=== PATIENT | male | born 1955 | race Caucasian/White ===

== ENCOUNTER → 2020-09-02 | Outpatient (CLI) | payer BC | LOC: WCC 13:34 | PROVIDERS: ATTEND Plastic Surgery | DX: I70.244 Atherosclerosis of native arteries of left leg with ulceration of heel and midfoot (principal); I70.262 Atherosclerosis of native arteries of extremities with gangrene, left leg; U07.1 COVID-19; L97.421 Non-pressure chronic ulcer of left heel and midfoot limited to breakdown of skin; L97.528 Non-pressure chronic ulcer of other part of left foot with other specified severity; I82.4Y1 Acute embolism and thrombosis of unspecified deep veins of right proximal lower extremity; I73.89 Other specified peripheral vascular diseases; I50.9 Heart failure, unspecified; R09.89 Other specified symptoms and signs involving the circulatory and respiratory systems; I48.91 Unspecified atrial fibrillation; I10 Essential (primary) hypertension; M47.817 Spondylosis without myelopathy or radiculopathy, lumbosacral region; M51.26 Other intervertebral disc displacement, lumbar region ==

== ENCOUNTER → 2020-09-04 | Outpatient (CLI) | payer BC | LOC: WCC 08:13 | PROVIDERS: ATTEND Podiatrist | DX: I70.262 Atherosclerosis of native arteries of extremities with gangrene, left leg (principal); L97.528 Non-pressure chronic ulcer of other part of left foot with other specified severity; L97.421 Non-pressure chronic ulcer of left heel and midfoot limited to breakdown of skin; I70.244 Atherosclerosis of native arteries of left leg with ulceration of heel and midfoot; I82.4Y1 Acute embolism and thrombosis of unspecified deep veins of right proximal lower extremity; R06.89 Other abnormalities of breathing; I73.89 Other specified peripheral vascular diseases; M51.26 Other intervertebral disc displacement, lumbar region; I50.9 Heart failure, unspecified; M47.817 Spondylosis without myelopathy or radiculopathy, lumbosacral region; I48.91 Unspecified atrial fibrillation; I10 Essential (primary) hypertension ==

== ENCOUNTER → 2020-09-09 | Outpatient (CLI) | payer BC | LOC: WCC 13:44 | PROVIDERS: ATTEND Podiatrist | DX: I70.244 Atherosclerosis of native arteries of left leg with ulceration of heel and midfoot (principal); I70.262 Atherosclerosis of native arteries of extremities with gangrene, left leg; U07.1 COVID-19; L60.1 Onycholysis; L97.528 Non-pressure chronic ulcer of other part of left foot with other specified severity; L97.421 Non-pressure chronic ulcer of left heel and midfoot limited to breakdown of skin; I82.4Y1 Acute embolism and thrombosis of unspecified deep veins of right proximal lower extremity; I73.89 Other specified peripheral vascular diseases; R09.89 Other specified symptoms and signs involving the circulatory and respiratory systems; M51.26 Other intervertebral disc displacement, lumbar region; I10 Essential (primary) hypertension; I48.91 Unspecified atrial fibrillation; I50.9 Heart failure, unspecified; M47.817 Spondylosis without myelopathy or radiculopathy, lumbosacral region ==

== ENCOUNTER → 2020-09-16 | Outpatient (CLI) | payer BC ==
[~2020-09-16] MED LIST: COLLAGENASE OINTMENT 30 GM TUBE ONE; LIDOCAINE/PRILOCAINE 2.5-2.5% KIT ONE; MUPIROCIN 2% OINT 22 GM TUBE ONE
== END ==
LOC: WCC 13:41
PROVIDERS: ATTEND Podiatrist
DX: I70.244 Atherosclerosis of native arteries of left leg with ulceration of heel and midfoot (principal); I70.262 Atherosclerosis of native arteries of extremities with gangrene, left leg; U07.1 COVID-19; L60.1 Onycholysis; L97.421 Non-pressure chronic ulcer of left heel and midfoot limited to breakdown of skin; L97.528 Non-pressure chronic ulcer of other part of left foot with other specified severity; I82.4Y1 Acute embolism and thrombosis of unspecified deep veins of right proximal lower extremity; I73.89 Other specified peripheral vascular diseases; R09.89 Other specified symptoms and signs involving the circulatory and respiratory systems; I10 Essential (primary) hypertension; I48.91 Unspecified atrial fibrillation; I50.9 Heart failure, unspecified; M47.817 Spondylosis without myelopathy or radiculopathy, lumbosacral region; M51.26 Other intervertebral disc displacement, lumbar region

== ENCOUNTER → 2020-09-23 | Outpatient (CLI) | payer BC | LOC: WCC 13:41 | PROVIDERS: ATTEND Podiatrist | DX: I70.244 Atherosclerosis of native arteries of left leg with ulceration of heel and midfoot (principal); I70.262 Atherosclerosis of native arteries of extremities with gangrene, left leg; U07.1 COVID-19; L97.421 Non-pressure chronic ulcer of left heel and midfoot limited to breakdown of skin; L97.528 Non-pressure chronic ulcer of other part of left foot with other specified severity; L60.1 Onycholysis; I82.4Y1 Acute embolism and thrombosis of unspecified deep veins of right proximal lower extremity; I73.89 Other specified peripheral vascular diseases; R09.89 Other specified symptoms and signs involving the circulatory and respiratory systems; M51.26 Other intervertebral disc displacement, lumbar region; I10 Essential (primary) hypertension; I48.91 Unspecified atrial fibrillation; I50.9 Heart failure, unspecified; M47.817 Spondylosis without myelopathy or radiculopathy, lumbosacral region ==

== ENCOUNTER → 2020-09-30 | Outpatient (CLI) | payer BC | LOC: WCC 14:04 | PROVIDERS: ATTEND Podiatrist | DX: I70.244 Atherosclerosis of native arteries of left leg with ulceration of heel and midfoot (principal); I70.262 Atherosclerosis of native arteries of extremities with gangrene, left leg; U07.1 COVID-19; L97.528 Non-pressure chronic ulcer of other part of left foot with other specified severity; L97.421 Non-pressure chronic ulcer of left heel and midfoot limited to breakdown of skin; I82.4Y1 Acute embolism and thrombosis of unspecified deep veins of right proximal lower extremity; L60.1 Onycholysis; I73.89 Other specified peripheral vascular diseases; I10 Essential (primary) hypertension; I48.91 Unspecified atrial fibrillation; I50.9 Heart failure, unspecified; M47.817 Spondylosis without myelopathy or radiculopathy, lumbosacral region; M51.26 Other intervertebral disc displacement, lumbar region; R09.89 Other specified symptoms and signs involving the circulatory and respiratory systems ==

== ENCOUNTER → 2020-10-06 | Outpatient (CLI) | payer BC | LOC: RAD 15:56 | PROVIDERS: ATTEND Podiatrist | DX: I96 Gangrene, not elsewhere classified (principal) ==

== ENCOUNTER → 2020-10-07 | Outpatient (CLI) | payer BC | LOC: WCC 14:10 | PROVIDERS: ATTEND Podiatrist | DX: I70.244 Atherosclerosis of native arteries of left leg with ulceration of heel and midfoot (principal); I70.262 Atherosclerosis of native arteries of extremities with gangrene, left leg; U07.1 COVID-19; L97.421 Non-pressure chronic ulcer of left heel and midfoot limited to breakdown of skin; L97.528 Non-pressure chronic ulcer of other part of left foot with other specified severity; L60.1 Onycholysis; I82.4Y1 Acute embolism and thrombosis of unspecified deep veins of right proximal lower extremity; I73.89 Other specified peripheral vascular diseases; R09.89 Other specified symptoms and signs involving the circulatory and respiratory systems; I10 Essential (primary) hypertension; I48.91 Unspecified atrial fibrillation; I50.9 Heart failure, unspecified; M47.817 Spondylosis without myelopathy or radiculopathy, lumbosacral region; M51.26 Other intervertebral disc displacement, lumbar region ==

== ENCOUNTER → 2020-10-14 | Outpatient (CLI) | payer BC | LOC: WCC 13:53 | PROVIDERS: ATTEND Podiatrist | DX: I70.244 Atherosclerosis of native arteries of left leg with ulceration of heel and midfoot (principal); I70.262 Atherosclerosis of native arteries of extremities with gangrene, left leg; L97.421 Non-pressure chronic ulcer of left heel and midfoot limited to breakdown of skin; L97.528 Non-pressure chronic ulcer of other part of left foot with other specified severity; L60.1 Onycholysis; I82.4Y1 Acute embolism and thrombosis of unspecified deep veins of right proximal lower extremity; I73.89 Other specified peripheral vascular diseases; I10 Essential (primary) hypertension; I48.91 Unspecified atrial fibrillation; I50.9 Heart failure, unspecified; M47.817 Spondylosis without myelopathy or radiculopathy, lumbosacral region; M51.26 Other intervertebral disc displacement, lumbar region; R09.89 Other specified symptoms and signs involving the circulatory and respiratory systems; U07.1 COVID-19 ==

== ENCOUNTER → 2020-10-21 | Outpatient (CLI) | payer BC ==
[~2020-10-21] MED LIST changes: +LIDOCAINE VISC 2% SOLN 15 ML UDC ONE; -LIDOCAINE/PRILOCAINE 2.5-2.5% KIT ONE; -MUPIROCIN 2% OINT 22 GM TUBE ONE
== END ==
LOC: WCC 14:11
PROVIDERS: ATTEND Podiatrist
DX: I70.262 Atherosclerosis of native arteries of extremities with gangrene, left leg (principal); U07.1 COVID-19; I82.4Y1 Acute embolism and thrombosis of unspecified deep veins of right proximal lower extremity; L97.528 Non-pressure chronic ulcer of other part of left foot with other specified severity; L97.421 Non-pressure chronic ulcer of left heel and midfoot limited to breakdown of skin; L60.1 Onycholysis; I70.244 Atherosclerosis of native arteries of left leg with ulceration of heel and midfoot; I73.89 Other specified peripheral vascular diseases; R09.89 Other specified symptoms and signs involving the circulatory and respiratory systems; I10 Essential (primary) hypertension; I48.91 Unspecified atrial fibrillation; I50.9 Heart failure, unspecified; M47.817 Spondylosis without myelopathy or radiculopathy, lumbosacral region; M51.26 Other intervertebral disc displacement, lumbar region

== ENCOUNTER → 2020-10-28 | Outpatient (CLI) | payer BC | LOC: WCC 14:08 | PROVIDERS: ATTEND Podiatrist | DX: I70.262 Atherosclerosis of native arteries of extremities with gangrene, left leg (principal); U07.1 COVID-19; L97.528 Non-pressure chronic ulcer of other part of left foot with other specified severity; L60.1 Onycholysis; I73.89 Other specified peripheral vascular diseases; I82.4Y1 Acute embolism and thrombosis of unspecified deep veins of right proximal lower extremity; R09.89 Other specified symptoms and signs involving the circulatory and respiratory systems; I10 Essential (primary) hypertension; I50.9 Heart failure, unspecified; I48.91 Unspecified atrial fibrillation; M47.817 Spondylosis without myelopathy or radiculopathy, lumbosacral region; M51.26 Other intervertebral disc displacement, lumbar region ==

== ENCOUNTER → 2020-11-04 | Outpatient (CLI) | payer BC ==
[2020-11-04 17:09] LABS: HEMATOCRIT 34.5 % (38.2-49.6); HEMOGLOBIN 10.8 g/dL (14.0-18.0); MEAN CORPUSCULAR HEMOGLOBIN 29.1 pg (28-32); MEAN CORPUSCULAR HGB CONC 31.3 g/dL (31-35); PLATELET COUNT 276 x10e3/uL (140-360); RED BLOOD COUNT 3.71 x10e6/uL (4.3-5.7); RED CELL DISTRIBUTION WIDTH 14.9 % (11.7-14.4)
[2020-11-04 17:30] LABS: ALBUMIN 3.7 g/dL (3.5-5.0); ALBUMIN/GLOBULIN RATIO 1.2 (0.8-2.0); CALCIUM 9.4 mg/dL (8.4-10.2); CREATININE, SERUM 1.19 mg/dL (0.72-1.25)
[2020-11-04 17:55] LABS: BASOPHILS # (AUTO) 0.1 (0.0-0.1); BASOPHILS % 0.9 % (0.0-1.0); EOSINOPHILS # (AUTO) 0.3 (0.0-0.4); EOSINOPHILS % 2.6 % (0.0-6.0); LYMPHOCYTES # (AUTO) 2.6 (1.0-3.2); LYMPHOCYTES % 24.3 % (18.0-39.1); MONOCYTES # (AUTO) 0.6 (0.2-0.8); NEUTROPHILS % 65.8 % (38.7-80.0)
== END ==
LOC: WCC 13:29
PROVIDERS: ATTEND Podiatrist
DX: I70.262 Atherosclerosis of native arteries of extremities with gangrene, left leg (principal); L97.528 Non-pressure chronic ulcer of other part of left foot with other specified severity; U07.1 COVID-19; L60.1 Onycholysis; R09.89 Other specified symptoms and signs involving the circulatory and respiratory systems; I10 Essential (primary) hypertension; I48.91 Unspecified atrial fibrillation; I50.9 Heart failure, unspecified; M47.817 Spondylosis without myelopathy or radiculopathy, lumbosacral region; M51.26 Other intervertebral disc displacement, lumbar region
CPT/HCPCS: 36415; 80053; 84134; 85025; 85651; 86140

== ENCOUNTER → 2020-11-10 | Outpatient (CLI) | payer BC | LOC: MRI 12:41 | PROVIDERS: ATTEND Podiatrist | DX: I70.262 Atherosclerosis of native arteries of extremities with gangrene, left leg (principal); L97.528 Non-pressure chronic ulcer of other part of left foot with other specified severity ==

== ENCOUNTER → 2020-11-11 | Outpatient (CLI) | payer BC | LOC: WCC 13:34 | PROVIDERS: ATTEND Podiatrist | DX: I70.262 Atherosclerosis of native arteries of extremities with gangrene, left leg (principal); U07.1 COVID-19; L60.1 Onycholysis; L97.528 Non-pressure chronic ulcer of other part of left foot with other specified severity; I82.4Y1 Acute embolism and thrombosis of unspecified deep veins of right proximal lower extremity; I73.89 Other specified peripheral vascular diseases; R09.89 Other specified symptoms and signs involving the circulatory and respiratory systems; I10 Essential (primary) hypertension; I48.91 Unspecified atrial fibrillation; I50.9 Heart failure, unspecified; M47.817 Spondylosis without myelopathy or radiculopathy, lumbosacral region; M51.26 Other intervertebral disc displacement, lumbar region ==

== ENCOUNTER → 2020-11-18 | Outpatient (CLI) | payer BC ==
[~2020-11-18] MED LIST changes: -COLLAGENASE OINTMENT 30 GM TUBE ONE; +MINERAL OIL/PETROLAT/GLYCERI 6OZ BTL ONE; +TRYPSIN/BALSAM PERU/CASTOR OIL ONE
== END ==
LOC: WCC 15:04
PROVIDERS: ATTEND Podiatrist
DX: I70.262 Atherosclerosis of native arteries of extremities with gangrene, left leg (principal); U07.1 COVID-19; L60.1 Onycholysis; L97.528 Non-pressure chronic ulcer of other part of left foot with other specified severity; I82.4Y1 Acute embolism and thrombosis of unspecified deep veins of right proximal lower extremity; I73.89 Other specified peripheral vascular diseases; I10 Essential (primary) hypertension; I48.91 Unspecified atrial fibrillation; R09.89 Other specified symptoms and signs involving the circulatory and respiratory systems; I50.9 Heart failure, unspecified; M47.817 Spondylosis without myelopathy or radiculopathy, lumbosacral region; M51.26 Other intervertebral disc displacement, lumbar region

== ENCOUNTER 2020-12-09 14:26 | Outpatient (RCR) | payer BC, MEDICARE | END 2020-12-15 | LOC: WCC 14:26 | PROVIDERS: ATTEND Podiatrist | DX: I70.262 Atherosclerosis of native arteries of extremities with gangrene, left leg (principal); L97.528 Non-pressure chronic ulcer of other part of left foot with other specified severity; U07.1 COVID-19; L60.1 Onycholysis; I82.4Y1 Acute embolism and thrombosis of unspecified deep veins of right proximal lower extremity; I73.89 Other specified peripheral vascular diseases; I10 Essential (primary) hypertension; I48.91 Unspecified atrial fibrillation; I50.9 Heart failure, unspecified; M47.817 Spondylosis without myelopathy or radiculopathy, lumbosacral region; M51.26 Other intervertebral disc displacement, lumbar region; R09.89 Other specified symptoms and signs involving the circulatory and respiratory systems ==

== ENCOUNTER 2021-01-13 13:47 | Outpatient (RCR) | payer MEDICARE | END 2021-01-14 | LOC: WCC 13:47 | PROVIDERS: ATTEND Internal Medicine Infectious Disease | DX: I70.262 Atherosclerosis of native arteries of extremities with gangrene, left leg (principal); U07.1 COVID-19; L60.1 Onycholysis; I82.4Y1 Acute embolism and thrombosis of unspecified deep veins of right proximal lower extremity; L97.528 Non-pressure chronic ulcer of other part of left foot with other specified severity; I73.89 Other specified peripheral vascular diseases; I10 Essential (primary) hypertension; I48.91 Unspecified atrial fibrillation; I50.9 Heart failure, unspecified; M47.817 Spondylosis without myelopathy or radiculopathy, lumbosacral region; M51.26 Other intervertebral disc displacement, lumbar region; R09.89 Other specified symptoms and signs involving the circulatory and respiratory systems | CPT/HCPCS: 11042 ×2; 11730; 15004; 15275; 99211; 99212; Q4160 ==

== ENCOUNTER 2021-02-10 13:13 | Outpatient (RCR) | payer MEDICARE ==
[~2021-02-10 13:13] MED LIST changes: -MINERAL OIL/PETROLAT/GLYCERI 6OZ BTL ONE; -TRYPSIN/BALSAM PERU/CASTOR OIL ONE
== END 2021-02-14 ==
LOC: WCC 13:13
PROVIDERS: ATTEND Podiatrist
DX: I70.262 Atherosclerosis of native arteries of extremities with gangrene, left leg (principal); L60.1 Onycholysis; U07.1 COVID-19; I82.4Y1 Acute embolism and thrombosis of unspecified deep veins of right proximal lower extremity; L97.528 Non-pressure chronic ulcer of other part of left foot with other specified severity; R09.89 Other specified symptoms and signs involving the circulatory and respiratory systems; I73.89 Other specified peripheral vascular diseases; I10 Essential (primary) hypertension; I50.9 Heart failure, unspecified; I48.91 Unspecified atrial fibrillation; M47.817 Spondylosis without myelopathy or radiculopathy, lumbosacral region; M51.26 Other intervertebral disc displacement, lumbar region
CPT/HCPCS: 15275 ×2; 99212; Q4160 ×2

== ENCOUNTER 2021-03-10 14:45 | Outpatient (RCR) | payer MEDICARE ==
[~2021-03-10 14:45] MED LIST changes: +GENTAMICIN SULFATE 15 GM CR TP ONE; -LIDOCAINE VISC 2% SOLN 15 ML UDC ONE; +LIDOCAINE/PRILOCAINE 2.5-2.5% KIT ONE
== END 2021-03-16 ==
LOC: WCC 14:45
PROVIDERS: ATTEND Podiatrist
DX: I70.262 Atherosclerosis of native arteries of extremities with gangrene, left leg (principal); L97.528 Non-pressure chronic ulcer of other part of left foot with other specified severity; L60.1 Onycholysis; U07.1 COVID-19; I82.4Y1 Acute embolism and thrombosis of unspecified deep veins of right proximal lower extremity; I73.89 Other specified peripheral vascular diseases; I10 Essential (primary) hypertension; I50.9 Heart failure, unspecified; I48.91 Unspecified atrial fibrillation; M47.817 Spondylosis without myelopathy or radiculopathy, lumbosacral region; M51.26 Other intervertebral disc displacement, lumbar region; R09.89 Other specified symptoms and signs involving the circulatory and respiratory systems
CPT/HCPCS: 15275 ×4; Q4160 ×4

== ENCOUNTER 2021-04-14 13:55 | Outpatient (RCR) | payer MEDICARE | END 2021-04-16 | LOC: WCC 13:55 | PROVIDERS: ATTEND Podiatrist | DX: I70.262 Atherosclerosis of native arteries of extremities with gangrene, left leg (principal); L60.1 Onycholysis; U07.1 COVID-19; I82.4Y1 Acute embolism and thrombosis of unspecified deep veins of right proximal lower extremity; L97.528 Non-pressure chronic ulcer of other part of left foot with other specified severity; I73.89 Other specified peripheral vascular diseases; I10 Essential (primary) hypertension; I48.91 Unspecified atrial fibrillation; I50.9 Heart failure, unspecified; M47.817 Spondylosis without myelopathy or radiculopathy, lumbosacral region; M51.26 Other intervertebral disc displacement, lumbar region; R09.89 Other specified symptoms and signs involving the circulatory and respiratory systems | CPT/HCPCS: 15275 ×2; 97597; 99212 ×2; Q4160 ×2 ==

== ENCOUNTER → 2021-08-06 | Day surgery (SDC) | payer MEDICARE ==
[2021-08-03 15:53] LABS: BASOPHILS # (AUTO) 0.1 (0.0-0.1); BASOPHILS % 1.1 % (0.0-1.0); EOSINOPHILS # (AUTO) 0.2 (0.0-0.4); EOSINOPHILS % 1.4 % (0.0-6.0); HEMOGLOBIN 13.2 g/dL (14.0-18.0); LYMPHOCYTES % 24.6 % (18.0-39.1); MEAN CORPUSCULAR HEMOGLOBIN 31.4 pg (28-32); MONOCYTES # (AUTO) 0.9 (0.2-0.8); MONOCYTES % 7.2 % (4.4-11.3); NEUTROPHILS # (AUTO) 7.9 (2.1-6.9); NEUTROPHILS % 65.2 % (38.7-80.0); PLATELET COUNT 277 x10e3/uL (140-360); RED BLOOD COUNT 4.21 x10e6/uL (4.3-5.7); RED CELL DISTRIBUTION WIDTH 13.2 % (11.7-14.4)
[~2021-08-06] MED LIST changes: +AMIODARONE HCL200 MG PO; +BUPIVACAINE HCL 0.5% INJ 30 ML VIAL INJ ONE; +BUSPIRONE HCL5 MG PO; +COMBIVENT RESPIM4 GM IH; +ELIQUIS5 MG PO; +FENTANYL CITRATE/PF 100MCG/2 ML INJ ONE; +FERROUS SULFAT325 MG PO; +FLONASE ALLERG9.9 ML INH; +FLOVENT HFA17 GM INH; -GENTAMICIN SULFATE 15 GM CR TP ONE; +KETOROLAC TROMETHAMINE 30 MG/ML VIAL ONE; +LIDOCAINE HCL 1% LOCAL INJ 20 ML VIAL ONE; +LIDOCAINE HCL 2% LOCAL INJ 5 ML SDV VIAL INJ ONE; -LIDOCAINE/PRILOCAINE 2.5-2.5% KIT ONE; +LIPITOR10 MG PO; +ONDANSETRON HCL INJ 2MG/ML 2ML 2 MG/ML VIAL ONE; +PANTOPRAZOLE SO40 MG PO; +POVIDONE IODINE 0.05% 0.05 % ML PO ONE; +PROPOFOL IV EMULSION 10 MG/ML 20 ML VIAL ONE; +SERTRALINE HCL100 MG PO; +SEVOFLURANE INHAL SOLN 250 ML PEN BTL ONE; +TRAMADOL HCL 50 MG TAB ONE; +TRIAMCINOLONE ACET 40 MG/ML VIAL ONE; +ZOLPIDEM TARTRAT5 MG PO; +ZYRTEC-D TABLE1 EACH PO
[2021-08-06 20:00] VITALS: BP 148/74
== END | disposition home or self-care (01) ==
LOC: OR 12:15
PROVIDERS: ATTEND Podiatrist
DX: S92.351A Displaced fracture of fifth metatarsal bone, right foot, initial encounter for closed fracture (principal); F32.A Depression, unspecified; X58.XXXA Exposure to other specified factors, initial encounter; Z01.810 Encounter for preprocedural cardiovascular examination; Z01.812 Encounter for preprocedural laboratory examination; Z01.818 Encounter for other preprocedural examination; Z20.822 Contact with and (suspected) exposure to COVID-19; Z79.02 Long term (current) use of antithrombotics/antiplatelets; Z79.899 Other long term (current) drug therapy; Z68.30 Body mass index [BMI] 30.0-30.9, adult; Z86.73 Personal history of transient ischemic attack (TIA), and cerebral infarction without residual deficits; Z86.718 Personal history of other venous thrombosis and embolism; Z86.16 Personal history of COVID-19
CPT/HCPCS: 28485; 36415; 71046; 85025; 93005; J0690; J1885; J2001 ×2; J2405; J2704; J3010; J3301; U0002; C1713